=== PATIENT | female | born 1945 | race African-American/Black ===

== ENCOUNTER 2016-08-26 13:49 | Inpatient (IN) | payer MEDICARE, OTHER ==
[~2016-08-26] VITALS: Ht 162.6 cm; Wt 113.4 kg
[2016-08-26] MEDS ORDERED: FUROSEMIDE 40MG/4ML VIAL IVP ONE (14:30)
[2016-08-26] MEDS ORDERED: NITROGLYCERIN OINT 1GM/INCH UDPKT TD ONE (14:30)
[2016-08-26 14:59] LABS: BASOPHILS % 0.5 % (0.0-2.0); CHLORIDE 104 mEq/L (98-107); EOSINOPHILS % 1.5 % (0.0-5.0); HEMATOCRIT. 37.3 % (36.0-48.0); HEMOGLOBIN. 11.9 g/dL (12.0-16.0); LYMPHOCYTES % 27.2 % (20.0-50.0); MEAN CORPUSCULAR HEMOGLOBIN 23.8 pg (28.0-32.0); MEAN CORPUSCULAR VOLUME 74.8 fL (81.0-99.0); MEAN PLATELET VOLUME 7.6 fl (7.4-10.4); MONOCYTES % 7.3 % (2.0-8.0); NEUTROPHILS % 63.5 % (40.0-76.0); PLATELET 239 x1000/uL (130-400); RED BLOOD CELL COUNT 4.98 mill/uL (4.2-5.4); RED CELL DISTRIBUTION WIDTH 17.2 % (11.6-14.6)
[2016-08-26 15:02] LABS: INR 1.1; PARTIAL THROMBOPLASTIN TIME 27.1 sec (24.0-34.0)
[2016-08-26 15:04] LABS: CARBON DIOXIDE 28 mEq/L (21-32)
[2016-08-26 15:09] LABS: CREATINE KINASE 68 IU/L (26-192); CREATINE KINASE MB FRACTION 1.1 ng/mL (0.5-3.6); TROPONIN I < 0.02 ng/mL (0.00-0.04)
[2016-08-26] MEDS ORDERED: CLONIDINE 0.1MG TABLET PO PRN (17:15)
[2016-08-26] MEDS ORDERED: ONDANSETRON HCL 4MG/2ML VIAL IV PRN (17:15)
[2016-08-26] MEDS: LOSARTAN POTASSIUM 50 MG TABLET PO SCH (18:16)
[2016-08-26] MEDS ORDERED: TRIA1TAB5 PO (18:20)
[2016-08-26] MEDS ORDERED: BENA20TA3 PO (18:23)
[2016-08-26] MEDS ORDERED: SIMV20TA6 PO (18:23)
[2016-08-26] MEDS ORDERED: GABA-533 PO (18:23)
[2016-08-26] MEDS ORDERED: MELO-106 PO (18:23)
[2016-08-26] MEDS ORDERED: AMLO10TA80 PO (18:23)
[2016-08-26] MEDS: ENOXAPARIN 30MG/0.3ML SYR SUBCUT SCH (21:04)
[2016-08-26] MEDS: ACETAMINOPHEN 325MG TABLET PO PRN (22:31)
[2016-08-26] MEDS ORDERED: PNEUMOCOCCAL 23-VAL P-SAC VAC 0.5 ML IM ONE (23:15)
[2016-08-26 23:43] LABS: CREATINE KINASE 75 IU/L (26-192); CREATINE KINASE MB FRACTION 0.8 ng/mL (0.5-3.6); TROPONIN I < 0.02 ng/mL (0.00-0.04)
[2016-08-27 06:27] LABS: CARBON DIOXIDE 29 mEq/L (21-32); CHLORIDE 102 mEq/L (98-107); CREATINE KINASE 73 IU/L (26-192); CREATINE KINASE MB FRACTION 0.7 ng/mL (0.5-3.6); HDL CHOLESTEROL 58 mg/dL (40-59); LDL CHOLESTEROL 158 mg/dL (5-100); TROPONIN I < 0.02 ng/mL (0.00-0.04)
[2016-08-27 06:33] LABS: BASOPHILS % 0.7 % (0.0-2.0); EOSINOPHILS % 2.5 % (0.0-5.0); HEMATOCRIT. 34.9 % (36.0-48.0); HEMOGLOBIN. 11.1 g/dL (12.0-16.0); LYMPHOCYTES % 24.8 % (20.0-50.0); MEAN CORPUSCULAR HEMOGLOBIN 23.8 pg (28.0-32.0); MEAN CORPUSCULAR VOLUME 74.7 fL (81.0-99.0); MEAN PLATELET VOLUME 8.1 fl (7.4-10.4); MONOCYTES % 9.7 % (2.0-8.0); NEUTROPHILS % 62.3 % (40.0-76.0); PLATELET 231 x1000/uL (130-400); RED BLOOD CELL COUNT 4.67 mill/uL (4.2-5.4); RED CELL DISTRIBUTION WIDTH 17.3 % (11.6-14.6)
[2016-08-27] MEDS: ENOXAPARIN 30MG/0.3ML SYR SUBCUT SCH ×2 (08:53→20:42)
[2016-08-27] MEDS: LOSARTAN POTASSIUM 50 MG TABLET PO SCH (08:53)
[2016-08-27] MEDS: FUROSEMIDE 40MG/4ML VIAL IV SCH (08:53)
[2016-08-27] MEDS: ASPIRIN 81MG EC TABLET PO SCH (08:53)
[2016-08-27] MEDS ORDERED: NA PHOS,M-B/NA PHOS,DI-BA ENEMA 118ML PR NR (13:15)
[2016-08-27] MEDS ORDERED: LACTULOSE 20G/30ML UDC PO PRN (13:15)
[2016-08-27] MEDS: POTASSIUM CHLORIDE 20MEQ TABLET SR PO SCH (13:41)
[2016-08-27] MEDS: DOCUSATE SODIUM 100MG CAPSULE PO SCH ×2 (13:41→17:52)
[2016-08-27] MEDS ORDERED: CLONIDINE 0.2MG TABLET PO PRN (15:00)
[2016-08-27] MEDS ORDERED: CLONIDINE 0.1MG TABLET PO PRN (15:00)
[2016-08-27] MEDS: ATORVASTATIN CALCIUM 20MG TABLET PO SCH (20:42)
[2016-08-28 06:59] LABS: CARBON DIOXIDE 30 mEq/L (21-32); CHLORIDE 105 mEq/L (98-107); TROPONIN I < 0.02 ng/mL (0.00-0.04)
[2016-08-28 07:30] LABS: BASOPHILS % 0.4 % (0.0-2.0); EOSINOPHILS % 2.3 % (0.0-5.0); HEMATOCRIT. 37.3 % (36.0-48.0); HEMOGLOBIN. 11.8 g/dL (12.0-16.0); LYMPHOCYTES % 27.7 % (20.0-50.0); MEAN CORPUSCULAR HEMOGLOBIN 23.8 pg (28.0-32.0); MEAN CORPUSCULAR VOLUME 75.1 fL (81.0-99.0); MEAN PLATELET VOLUME 7.7 fl (7.4-10.4); MONOCYTES % 9.9 % (2.0-8.0); NEUTROPHILS % 59.7 % (40.0-76.0); PLATELET 231 x1000/uL (130-400); RED BLOOD CELL COUNT 4.96 mill/uL (4.2-5.4); RED CELL DISTRIBUTION WIDTH 17.1 % (11.6-14.6)
[2016-08-28] MEDS: POTASSIUM CHLORIDE 20MEQ TABLET SR PO SCH (08:50)
[2016-08-28] MEDS: DOCUSATE SODIUM 100MG CAPSULE PO SCH ×2 (08:50→18:11)
[2016-08-28] MEDS: FUROSEMIDE 40MG/4ML VIAL IV SCH (08:50)
[2016-08-28] MEDS: ENOXAPARIN 30MG/0.3ML SYR SUBCUT SCH ×2 (08:51→21:01)
[2016-08-28] MEDS: ASPIRIN 81MG EC TABLET PO SCH (08:51)
[2016-08-28] MEDS: LOSARTAN POTASSIUM 50 MG TABLET PO SCH (09:02)
[2016-08-28] MEDS: ACETAMINOPHEN 325MG TABLET PO PRN (18:16)
[2016-08-28] MEDS: ATORVASTATIN CALCIUM 20MG TABLET PO SCH (21:01)
[2016-08-29 05:23] LABS: BASOPHILS % 0.6 % (0.0-2.0); EOSINOPHILS % 2.1 % (0.0-5.0); HEMATOCRIT. 37.4 % (36.0-48.0); HEMOGLOBIN. 11.8 g/dL (12.0-16.0); MEAN CORPUSCULAR HEMOGLOBIN 23.7 pg (28.0-32.0); MEAN CORPUSCULAR VOLUME 75.2 fL (81.0-99.0); MEAN PLATELET VOLUME 7.8 fl (7.4-10.4); MONOCYTES % 10.9 % (2.0-8.0); NEUTROPHILS % 57.4 % (40.0-76.0); PLATELET 233 x1000/uL (130-400); RED BLOOD CELL COUNT 4.98 mill/uL (4.2-5.4); RED CELL DISTRIBUTION WIDTH 16.7 % (11.6-14.6)
[2016-08-29 06:05] LABS: CHLORIDE 102 mEq/L (98-107)
[2016-08-29 06:14] LABS: CARBON DIOXIDE 33 mEq/L (21-32)
[2016-08-29] MEDS: FUROSEMIDE 40MG/4ML VIAL IV SCH (09:21)
[2016-08-29] MEDS: ASPIRIN 81MG EC TABLET PO SCH (09:21)
[2016-08-29] MEDS: DOCUSATE SODIUM 100MG CAPSULE PO SCH (09:21)
[2016-08-29] MEDS: POTASSIUM CHLORIDE 20MEQ TABLET SR PO SCH (09:21)
[2016-08-29] MEDS: LOSARTAN POTASSIUM 50 MG TABLET PO SCH (09:21)
[2016-08-29] MEDS: ENOXAPARIN 30MG/0.3ML SYR SUBCUT SCH (09:22)
[2016-08-29 12:29] VITALS: BP 124/63
== END 2016-08-29 13:00 | disposition home or self-care (01) | DRG 292 ==
LOC: ER 14:22 → 5WST 14:46 → EDBEDREQ 14:49 → ENRESERV 15:30 → 5WST 21:03
PROVIDERS: ADMIT Hospitalist; ATTEND Hospitalist
DX: I11.0 Hypertensive heart disease with heart failure (principal); Z68.41 Body mass index [BMI] 40.0-44.9, adult; I16.0 Hypertensive urgency; I50.21 Acute systolic (congestive) heart failure; D64.9 Anemia, unspecified; E66.01 Morbid (severe) obesity due to excess calories; E78.00 Pure hypercholesterolemia, unspecified; E78.5 Hyperlipidemia, unspecified; E87.6 Hypokalemia; I44.0 Atrioventricular block, first degree; K59.00 Constipation, unspecified; I25.10 Atherosclerotic heart disease of native coronary artery without angina pectoris; G62.9 Polyneuropathy, unspecified
CPT/HCPCS: 36415; 71010; 80048; 80053; 80061; 82550; 82553; 83690; 83735; 83880; 84443; 84484; 85025; 85610; 85730; 90732; 93005; 93306; 93970; 97162; 99291; J1650; J1940; J2405